=== PATIENT | female | born 1970 | race Caucasian/White ===

== ENCOUNTER 2023-04-20 16:15 | Inpatient (IN) ==
[2023-04-20 17:28] LABS: Urine Appearance Cloudy; Urine Bilirubin Negative (Negative); Urine Blood 1+ (Negative); Urine Color Yellow; Urine Glucose Negative (Negative); Urine Ketones Negative (Negative); Urine Nitrite Negative (Negative); Urine Protein Negative (Negative); Urine Specific Gravity 1.006 (1.002-1.030); Urine Urobilinogen Negative (Negative)
[2023-04-20 17:29] LABS: ABS Eosinophils 0.1 10^3/uL (0.0-0.5); ABS Lymphocytes 2.1 10^3/uL (1.0-4.8); ABS Monocytes 0.7 10^3/uL (0.0-0.9); ABS Neutrophils 5.9 10^3/uL (1.5-7.6); ABS Nucleated RBC 0.01 10^3/ul; Eosinophil % 0.9 %; Hematocrit 43.4 % (35-45); Hemoglobin 14.8 g/dL (11.5-14.3); Lymphocyte % 23.3 %; Mean Corpuscular Hemoglobin 31.3 pg (27-33); Mean Platelet Volume 8.1 fL (7.5-11.2); Nucleated Red Blood Cells % 0.1 /100 WBC (0.0-0.4); Platelet Count 296 10^3/uL (150-450); Red Blood Count 4.72 10^6/uL (3.63-4.92); Red Cell Distribution Width 12.9 % (12-17); White Blood Count 8.8 10^3/uL (3.8-11.8)
[2023-04-20 17:41] LABS: Urine Bacteria Absent (Absent); Urine Red Blood Cell Trace(0-2/hpf) (Absent); Urine Squamous Epithelial Cell Present (Absent); Urine White Blood Cell Trace(0-5/hpf) (Absent)
[2023-04-20 17:46] LABS: ALT 65 U/L (7-52); AST 31 U/L (13-39); Albumin 4.5 g/dL (3.2-5.2); Albumin/Globulin Ratio 1.8 (1-3); Alkaline Phosphatase 88 U/L (35-149); Anion Gap 10 mmol/L (2-16); Blood Urea Nitrogen 16 mg/dL (6-24); CO2 Carbon Dioxide 25 mmol/L (22-32); Calcium 9.9 mg/dL (8.6-10.3); Chloride 102 mmol/L (101-111); Creatine Kinase 28 U/L (10-223); Creatinine, Serum 1.17 mg/dL (0.51-0.95); Globulin 2.5 g/dL (2-4); Glucose 98 mg/dL (70-100); Potassium 3.6 mmol/L (3.5-5.0); Sodium 137 mmol/L (135-145); eGFR CKD-EPI 56.1 (>60)
[2023-04-20 17:48] LABS: Urine Benzodiazepine Screen None Detected (None Detect); Urine Cannabinoids Screen None Detected (None Detect); Urine Opiates Screen None Detected (None Detect)
[2023-04-20 17:54] LABS: HCG Pregnancy 2.64 mIU/mL
[2023-04-20 18:04] LABS: Acetaminophen < 15 mcg/mL; Alcohol, S < 13 mg/dL (<13); Salicylate < 2.50 mg/dL (<30)
[2023-04-20] MEDS ORDERED: Al Hydrox/Mg Hydrox/Simet LIQ 30 ML UDC PO PRN (22:24)
[2023-04-21 08:50] LABS: HDL Cholesterol 37.8 mg/dL
[2023-04-21] MEDS ORDERED: Vitamin THERAPEUTIC TAB PO SCH (09:00)
[2023-04-28 08:52] VITALS: BP 98/66
== END 2023-04-28 12:30 | disposition home or self-care (01) | DRG 881 ==
LOC: ED 16:15 → EDHOLD 21:40 → BSU 23:26
PROVIDERS: ADMIT Psychiatry & Neurology Psychiatry; ATTEND Student in an Organized Health Care Education/Training Program

== ENCOUNTER 2023-06-01 14:18 | Inpatient (IN) ==
[2023-06-01 15:58] LABS: ABS Monocytes 0.5 10^3/uL (0.0-0.9); ABS Neutrophils 5.2 10^3/uL (1.5-7.6); Eosinophil % 0.5 %; Hematocrit 40.3 % (35-45); Mean Corpuscular Hemoglobin 32.1 pg (27-33); Mean Corpuscular Hgb Conc 34.8 g/dL (31-36); Mean Corpuscular Volume 92.1 fL (80-97); Mean Platelet Volume 7.8 fL (7.5-11.2); Nucleated Red Blood Cells % 0.1 /100 WBC (0.0-0.4); Platelet Count 298 10^3/uL (150-450); Red Blood Count 4.38 10^6/uL (3.63-4.92); Red Cell Distribution Width 13.2 % (12-17); White Blood Count 7.7 10^3/uL (3.8-11.8)
[2023-06-01 16:13] LABS: Urine Appearance Cloudy; Urine Bilirubin Negative (Negative); Urine Blood 2+ (Negative); Urine Color Yellow; Urine Glucose Negative (Negative); Urine Ketones 1+ (Negative); Urine Nitrite Negative (Negative); Urine Protein Negative (Negative); Urine Specific Gravity 1.021 (1.002-1.030); Urine Urobilinogen Negative (Negative)
[2023-06-01 16:16] LABS: ALT 19 U/L (7-52); AST 15 U/L (13-39); Albumin 4.4 g/dL (3.2-5.2); Albumin/Globulin Ratio 1.8 (1-3); Alkaline Phosphatase 83 U/L (35-149); Anion Gap 9 mmol/L (2-16); Blood Urea Nitrogen 13 mg/dL (6-24); CO2 Carbon Dioxide 23 mmol/L (22-32); Calcium 9.5 mg/dL (8.6-10.3); Chloride 107 mmol/L (101-111); Creatinine, Serum 0.89 mg/dL (0.51-0.95); Globulin 2.5 g/dL (2-4); Glucose 105 mg/dL (70-100); Potassium 3.9 mmol/L (3.5-5.0); Sodium 139 mmol/L (135-145); Total Protein 6.9 g/dL (6.4-8.9)
[2023-06-01 16:22] LABS: Urine Bacteria Absent (Absent); Urine Benzodiazepine Screen None Detected (None Detect); Urine Cannabinoids Screen None Detected (None Detect); Urine Opiates Screen None Detected (None Detect); Urine Red Blood Cell 1+(3-5/hpf) (Absent); Urine Squamous Epithelial Cell Present (Absent); Urine White Blood Cell Trace(0-5/hpf) (Absent)
[2023-06-01 16:47] LABS: Acetaminophen < 15 mcg/mL; Alcohol, S < 13 mg/dL (<13); Salicylate < 2.50 mg/dL (<30)
[2023-06-01 16:58] LABS: TSH Ultra Thyroid Stim Horm 0.73 mcIU/mL (0.34-5.60)
[2023-06-02] MEDS: Al Hydrox/Mg Hydrox/Simet LIQ 30 ML UDC PO PRN (08:17)
[2023-06-02] MEDS: Vitamin THERAPEUTIC TAB PO SCH ×2 (08:18→08:20)
[2023-06-02 08:49] LABS: HDL Cholesterol 37.2 mg/dL
[2023-06-02] MEDS ORDERED: DULoxetine DR 30 mg CAP PO ONE (15:26)
[2023-06-03] MEDS: Al Hydrox/Mg Hydrox/Simet LIQ 30 ML UDC PO PRN (03:30)
[2023-06-03] MEDS: DULoxetine DR 30 mg CAP PO SCH (08:32)
[2023-06-03] MEDS: Vitamin THERAPEUTIC TAB PO SCH (08:33)
[2023-06-04] MEDS: DULoxetine DR 30 mg CAP PO SCH (08:40)
[2023-06-04] MEDS: Vitamin THERAPEUTIC TAB PO SCH (08:43)
[2023-06-05] MEDS: DULoxetine DR 30 mg CAP PO SCH (09:28)
[2023-06-05] MEDS: Vitamin THERAPEUTIC TAB PO SCH (09:30)
[2023-06-06] MEDS: DULoxetine DR 60 mg CAP PO SCH (08:10)
[2023-06-06] MEDS: Vitamin THERAPEUTIC TAB PO SCH (08:12)
[2023-06-07] MEDS: DULoxetine DR 60 mg CAP PO SCH (08:21)
[2023-06-07] MEDS: Vitamin THERAPEUTIC TAB PO SCH (08:24)
[2023-06-07 09:31] VITALS: BP 107/64
== END 2023-06-07 11:33 | disposition home or self-care (01) | DRG 885 ==
LOC: ED 14:18 → BSU 17:10 → ED 17:10 → EDHOLD 17:56 → BSU 18:54
PROVIDERS: ADMIT Psychiatry & Neurology Psychiatry; ATTEND Psychiatry & Neurology Psychiatry